=== PATIENT | female | born 1990 ===

== ENCOUNTER 2017-12-16 09:54 | Emergency (ER) | payer OTHER ==
[2017-12-16 10:03] VITALS: BMI 32.5
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
[2017-12-16] MEDS ORDERED: cefTRIAXone (Rocephin) 250 mg Inj IM STA (13:39)
[2017-12-16 18:48] VITALS: BP 120/72; PULSE 84; RESP 16; TEMP 97.1; O2SAT 100
== END 2017-12-16 15:20 | disposition home or self-care (01) ==
LOC: H.ER 09:54
DX: T76.21XA Adult sexual abuse, suspected, initial encounter (principal)
CPT/HCPCS: 81025; 96372; 99285; J0696